=== PATIENT | male | born 1975 | race Caucasian/White ===

== ENCOUNTER 2022-12-16 08:15 | Outpatient (CLI) | payer OTHER, SELFPAY | END 2022-12-16 08:16 | disposition home or self-care (01) | PROVIDERS: PCP Family Medicine; Visit Provider Family Medicine | DX: Z00.00 Encounter for general adult medical examination without abnormal findings (principal); Z13.6 Encounter for screening for cardiovascular disorders | CPT/HCPCS: 80053; 80061; 84270; 84402; 84403 ==

== ENCOUNTER 2023-03-23 12:45 | Outpatient (CLI) | payer OTHER, SELFPAY | END 2023-03-23 12:46 | disposition home or self-care (01) | LOC: LKVREF 12:48 | PROVIDERS: PCP Family Medicine; Visit Provider Registered Nurse | DX: L30.9 Dermatitis, unspecified (principal); W57.XXXA Bitten or stung by nonvenomous insect and other nonvenomous arthropods, initial encounter | CPT/HCPCS: 86618 ==

== ENCOUNTER 2023-08-03 08:42 | Outpatient (CLI) | payer OTHER, SELFPAY ==
--- NOTE | 2023-08-03 09:15 | CRLHL7_ITS ---
For Patients: As a result of the Century Cures Act, medical imaging exams and procedure reports are released immediately into your electronic medical record. You may view this report before your referring provider. If you have questions, please contact your health care provider. INDICATION: Lumbago with sciatica. TECHNIQUE: Multiplanar multisequence noncontrast MR images acquired through the lumbar spine. COMPARISON: None. FINDINGS: Slight rightward lumbar curvature. The lumbar lordosis is preserved. Vertebral heights maintained. No acute fracture or spondylolisthesis. No T1 hypointense marrow replacing lesions. Normal conus terminates at T12-L1. T12-L1 through L2-3: No spinal canal or neural foraminal narrowing. L3-4: Annular bulge. Mild facet arthropathy. No spinal canal narrowing. Mild narrowing of the lateral recesses. No neural foraminal narrowing. L4-5: Postsurgical changes of left hemilaminotomy. T1 hypointense signal in the left lateral recess adjacent to traversing left L5 nerve roots, likely representing granulation tissue. Advanced disc degeneration and disc height loss. Minimal endplate edema as well as more pronounced type 2 degenerate signal changes. Posterior bulging and endplate spondylitic ridging. Mild facet arthropathy. Mild spinal canal narrowing. Moderate right and low-grade left lateral recess narrowing. Mild bilateral neural foraminal narrowing. L5-S1: Postsurgical changes of left hemilaminotomy. T1 hypointense signal in the left lateral recess adjacent to traversing left S1 nerve roots likely represents granulation tissue. Moderate disc degeneration. Disc height loss. Left eccentric disc bulging and endplate spondylitic ridging contact traversing left S1 nerve roots. Mild facet arthropathy. Minimal spinal canal narrowing. Minimal bilateral neural foraminal narrowing. Sacroiliac joint degenerative changes. Very small T2 hyperintense lesion in the left kidney interpolar region, most typical for a renal cyst. IMPRESSION: 1. Multilevel lumbar spondylosis without spinal canal stenosis. 2. At L4-5, postsurgical changes of left hemilaminotomy. T1 hypointense signal in the left lateral recess adjacent to traversing left L5 nerve roots likely represents granulation tissue. Moderate right and low-grade left lateral recess narrowing. 3. At L5-S1, postsurgical changes of left hemilaminotomy. T1 hypointense signal in the left lateral recess adjacent to traversing left S1 nerve roots likely represents granulation tissue. Left eccentric disc bulging and endplate spondylitic ridging contact traversing left S1 nerve roots. Dictated by Mp Dias MD @ 08/03/2023 12:31:24 PM (Electronically Signed)
== END 2023-08-03 08:43 | disposition home or self-care (01) ==
LOC: MRI 08:43
PROVIDERS: PCP Family Medicine; Visit Provider Family Medicine
DX: M54.40 Lumbago with sciatica, unspecified side (principal); M47.896 Other spondylosis, lumbar region
CPT/HCPCS: 72148

== ENCOUNTER 2023-09-30 12:47 | Outpatient (CLI) | payer OTHER, SELFPAY | END 2023-09-30 12:48 | disposition home or self-care (01) | LOC: FRMREF 12:48 | PROVIDERS: PCP Family Medicine; Visit Provider Family Medicine | DX: Z01.818 Encounter for other preprocedural examination (principal) | CPT/HCPCS: 80053 ==

== ENCOUNTER 2024-08-25 08:16 | Outpatient (CLI) | payer OTHER, SELFPAY ==
--- OUTSIDE RECORDS SUMMARY | 2024-08-26 20:16 | XMS_ITS | Data Portability ---
Author Organization [place] [facility] [place] [facility] Address [address] [facility] [address] [place] [address] Assessment Encounter Date Assessment Date Assessment LastModified by Organization Details LastModified Time 12/19/2020 12/19/2020 Patient here for catheter removal . [email or web address] Not available 12/19/2020 12:54:21 10/28/2023 10/28/2023 47M with history of urethral strictures s/p multiple dilations, here with weak stream. 1. Weak stream with h/o urethral stricture - had high grade stricture dilated [address] Sapp - given symptoms and history, concern for stricture recurrence - PVR today 47 cc so no concern for retention at present - recommend f/u in next ~[address] Sapp for cystoscopy: patient is not sure he wants to do this without sedation; will defer to Dr. Sapp on completing cysto in OR - pending cysto findings, may need to consider Optilume vs urethroplasty (he states today he is not interested in urethroplasty) Not available 10/28/2023 17:14:01 Plan of Treatment Reminders Order Date Submit Date Provider Last Modified By Organization Details Last Modified Time Details Appointments None recorded. Lab urinalysis, dipstick 2020 021 [email or web address] Not available 10:01:25 urinalysis, dipstick 2023 024 [email or web address] [facility], [address], [place], [address], 15:55:51 urinalysis, dipstick 2023 024 [email or web address] _[facility], [address], [address], [place], [address], 4 15:47:02 Referral None recorded. Procedures None recorded. Surgeries cystourethr oscopy with direct vision internal urethrotomy (SURG) 2020 021 [email or web address] Not available 16:56:02 Imaging None recorded. Medication Orders doxycycline hyclate 100 mg capsule [address] [facility], [address] [place], [address], 4 15:53:38 meloxicam 15 mg tablet [address] [facility], [address] [place], [address], 4 15:53:52 Patient TargetsNo targets recorded. Patient Instructions Encounter Date Encounter Id Patient Instructions Last Modified By Organization Details Last Modified Time 12/19/2020 [id number] Patient to retur n to clinic or ER if unable to void [email or web address] Not available 12/19/2020 12:55:01 Reason for Referral None Reported. Results Created Date Observation Date Name Description Value Unit Range Abnormal Flag Note LastModifiedBy Organization Detail LastModifiedTime 11/07/2020 urina lysis , dipst ick pH-Status 6.0 Not Available [facility] [address], [place], [address], 11/07/2020 09:56:11 11/07/2020 urina lysis , dipst ick Blood-Status Negati ve Not Available [facility] [address], [place], [address], 11/07/2020 09:56:11 10/28/19 24 10/28/2023 urina lysis , dipst ick Color-Status Yellow Not Available [facility] [address], [place], [address], 10/28/2023 15:55:21 10/28/19 24 10/28/2023 urina lysis , dipst ick Clarity-Stat us Clear Not Available [facility] [address], [place], [address], 10/28/2023 15:55:21 10/28/19 24 10/28/2023 urina lysis , dipst ick pH-Status 7.0 Not Available [facility] [address], [place], [address], 10/28/2023 15:55:21 11/03/19 24 11/03/2023 urina lysis , dipst ick Color-Status Yellow Not Available [facility] [address], [place], [address], 11/03/2023 10:25:59 11/03/19 24 11/03/2023 urina lysis , dipst ick Clarity-Stat us Clear Not Available _[address], [place], [address], 11/03/2023 10:25:59 11/03/19 24 11/03/2023 urina lysis , dipst ick Glucose-Stat us Negati ve Not Available [address], [place], [address], 11/03/2023 10:25:59 11/03/19 24 11/03/2023 urina lysis , dipst ick Sp [place]-Stat us 1.020 Not Available [address], [place], [address], 11/03/2023 10:25:59 11/03/19 24 11/03/2023 urina lysis , dipst ick Nitrates-Sta tus negati ve Not Available [facility] [address], [place], [address], 11/03/2023 10:25:59 11/03/19 24 11/03/2023 urina lysis , dipst ick Blood-Status Negati ve Not Available [facility] [address], [place], [address], 11/03/2023 10:25:59 11/03/19 24 11/03/2023 urina lysis , dipst ick Leuko-Status Negati ve Not Available [place] [address], [place], [address], 11/03/2023 10:25:59 11/07/19 21 11/07/2020 bladd er scan (PROC ) No observ ation record ed. BARCODE Not Available 2020 20:13:13 11/08/19 21 11/07/2020 bladd er scan (PROC ) No observ ation record ed. BARCODE Not Available 2020 08:56:36 Result Notes None recorded. Problems Name Problem SNOMED Code Status Onset Date Resolution Date Notes Provider Name and Address Organization Details Recorded Time Slowing of urinary stream 99209809 Completed 202311/03/2023 Annabel valadez [facility] 4 09:02:51 Urethral stricture 90575688 Active 2023 Mp Sapp MD [address] [place] [address],[address], [address], [facility] 4 16:20:34 Poor stream of urine 138315737 Active 2023 Mp Sapp MD [address] [place] [address],[address], [place], [address], [facility] 4 16:22:10 Problem Notes None recorded. Procedures Surgical History Date Name Laterality Status Provider Name and Address Organization Details Recorded Time 4 Bladder Scan completed Annabel Hughes [facility] 11/03/2023 15:46:32 4 Bladder Scan completed Zita Cramer [facility] 10/28/2023 15:55:17 1 Fill and Pull/Voiding Trial/TOV completed Mayo Panchal [facility] 12/19/2020 12:53:04 1 Cystoscopy- male completed Mp Sapp MD [address], [place], [address], [facility] 11/07/2020 10:27:17 1 Bladder Scan completed Vania Soni [facility] 11/07/2020 10:00:56 9 Colonoscopy completed Annabel Hughes [facility] 11/03/2023 15:45:16 procedure on back completed Zita Cramer [facility] 10/28/2023 15:55:03 Imaging Results Imaging Date Name Status LastModified by Organiz ation Details LastModified Time 11/07/2020 bladder scan (PROC) completed [facility] Information not available 11/07/2020 20:13:13 11/07/2020 bladder scan (PROC) completed [facility] Information not available 11/08/2020 08:56:36 Procedure Notes None recorded. Medical Equipment None Reported. Allergies Allergen ID Allergen Name Allergen Category Reaction Reaction Severity Criticality Documentation Date Start Date Code Code System Note Provider Name and Address Organization Details Recorded Time 715249 No known allergy (situatio n) Not available Not available Not available Not available 11/03/2023 45389 6003 SNOMED Annabel valadez [facility] 4 09:02:57 Medications Name Sig Start Date Stop Date Status Note LastModified by Organization Details LastModified Time cyclobenzap rine 10 mg tablet TAKE 1 TABLET BY MOUTH THREE TIMES DAILY NEEDED FOR MUSCLE SPASM 10/28 completed Not Available Not Available Not Available doxycycline hyclate 100 mg capsule Take 1 capsule twice a day by oral route. 10/28 completed Not Available Not Available Not Available trazodone 50 mg tablet TAKE 1 TO 3 TABLETS BY MOUTH DAILY active Not Available Not Available No t Available sildenafil 50 mg tablet TAKE 1 TABLET BY MOUTH NEEDED 1 HOUR PRIOR TO INTERCOUR SE, TAKE DIRECTED FOR SEXUAL ACTIVITY active Not Available Not Available No t Available hydrocodone 5 mg-acetamin ophen 325 mg tablet TAKE 1 TO 2 TABLETS BY MOUTH EVERY 6 HOURS NEEDED FOR PAIN 10/28 completed Not Available Not Available Not Available meloxicam 15 mg tablet Take 1 tablet every day by oral route with meals. 10/28 completed Not Available Not Available Not Available sennosides 8.6 mg-docusate sodium 50 mg tablet 0 {tbl}s by oral route. 12/12 completed Not Available Not Available Not Available ciprofloxac in 500 mg tablet 500 mg by oral route. 10/28 completed Not Available Not Available Not Available sulfamethox azole 800 mg-trimetho prim 160 mg tablet TAKE 1 TABLET BY MOUTH TWICE DAILY 10/28 completed Not Available Not Available Not Available oxycodone-a cetaminophe n 5 mg-325 mg tablet TAKE 1 TABLET BY MOUTH EVERY 12 HOURS NEEDED FOR MODERATE TO SEVERE PAIN active Not Available Not Available No t Available methocarbam ol 750 mg tablet 750 mg by oral route. 12/12 completed Not Available Not Available Not Available tamsulosin 0.4 mg capsule TAKE 1 CAPSULE BY MOUTH ONCE DAILY 10/28 completed Not Available Not Available Not Available phenazopyri dine 100 mg tablet TAKE 1 TABLET BY MOUTH EVERY 8 HOURS NEEDED 10/28 completed Not Available Not Available Not Available polymyxin B sulfate 10,000 unit-trimet hoprim 1 mg/mL eye drops APPLY 2 DROPS INTO AFFECTED EYE THREE TIMES DAILY. 10/28 completed Not Available Not Available Not Available triamcinolo ne acetonide 0.025 % topical ointment APPLY TOPICALLY TWICE DAILY FOR 7 DAYS. 10/28 completed Not Available Not Available Not Available gabapentin 300 mg capsule TAKE 1 CAPSULE BY MOUTH EVERY DAY AT BEDTIME active Not Available Not Available No t Available mupirocin 2 % topical ointment APPLY TOPICALLY TWICE DAILY FOR 7 DAYS. 10/28 completed Not Available Not Available Not Available methylpredn isolone 4 mg tablets in a dose pack TAKE BY MOUTH DIRECTED ON INSIDE OF PACKAGE 10/28 completed Not Available Not Available Not Available oxycodone 5 mg tablet TAKE 1 TABLET BY MOUTH EVERY 6 HOURS NEEDED FOR PAIN 10/28 completed Not Available Not Available Not Available olopatadine 0.2 % eye drops APPLY 1 DROP BOTH EYES DAILY NEEDED. 10/28 completed Not Available Not Available Not Available Vitals Date Recorded Body height Body mass index (BMI) Body weight Provider Name and Address Organization Details Last Updated DateTime 10/28/2023 182.88 cm 28.5 kg/m2 81714.4 g Zita Cramer [facility] 10/28/2023 15:53:17 Date Recorded Body height Body mass index (BMI) Body weight Provider Name and Address Organization Details Last Updated DateTime 11/03/2023 182.88 cm 28.5 kg/m2 42323.4 g Annabel Hughes [facility] 11/03/2023 15:44:41 Date Recorded Body height Body mass index (BMI) Body weight Provider Name and Address Organization Details Last Updated DateTime 11/07/2020 182.88 cm 30.5 kg/m2 386102.28 g Vania Soni [facility] 11/07/2020 09:55:06 Social History Question Answer Notes LastModified by Organizat ion Details LastModified Time Tobacco Smoking Status Never Smoker Vania valadez [facility] 11/07/2020 09:55:35 What Is Your Level Of Alcohol Consumption? None [email or web address] Information not available 10/28/2023 What Is Your Level Of Caffeine Consumption? Occasional [email or web address] Information not available 11/03/2023 What Was The Date Of Your Most Recent Tobacco Screening? 11/03/2023 [email or web address] Information not available 11/03/2023 Do You Use Any Illicit Or Recreational Drugs? No [email or web address] Information not available 11/03/2023 Has Tobacco Cessation Counseling Been Provided? No [email or web address] Information not available 11/03/2023 Sex: Unknown Functional Status None recorded. Mental Status None recorded. Family History Relationship Description Onset Age of this Age Resolved Age Notes LastModified by Organization Details LastModified Time Father No current problems or disability [email or web address] Not available 11/07 10:00:44 Mother No current problems or disability [email or web address] Not available 11/07 10:00:44 Medical History Condition Response Diabetes N Sexually Transmitted Infection N Other N Bleeding Disorder N High Blood Pressure N Kidney Stones N Cancer N Lung Disease N Depression N High Cholesterol N GERD/Acid Reflux N Heart Disease N Immunizations Vaccine Type Date Status Provider Name and Address Organization Details Recorded Time DT (pediatric) 06/10/1992 completed Annabel February rory, [facility] 11/03/2023 09:02:28 influenza, unspecified formulation 09/07/2005 completed Annabel February rory, [facility] 11/03/2023 09:02:28 Tdap 10/07/2018 completed Annabel February rory, [facility] 11/03/2023 09:02:28 Td (adult), 2 Lf tetanus toxoid, preservative free, adsorbed 07/18/2000 completed Annabel February rory, [facility] 11/03/2023 09:02:28 Past Encounters Encounter ID Performer Location Encounter Start Date Encounter Closed Date Diagnosis/Indication Diagnosis SNOMED-CT Code Diagnosis ICD10 Code [id number] Mp Sapp MD [facility] [address] [place] [address] 11/07/2020 09:50:14 11/07/2020 13:39:18 Urinary tract infectious disease 28261491 N39.0 Prostatitis 5719360 N41. 9 Urethral stricture 88931 002 N35.814 [id number] Mp Sapp MD _[facility] [address] [place] [address] 12/19/2020 12:26:39 12/23/2020 08:51:14 [id number] Sharon Garcia PA-C _[place] [address] [place] [address] 10/28/2023 15:31:33 11/11/2023 17:36:59 History of urethral stricture 304720788 Z87.448 Slowing of urinary stream 81402805 R39.12 [id number] Mp Sapp MD [facility] [place] [address] 11/03/2023 15:36:43 11/12/2023 11:29:24 Poor stream of urine 007792712 R39.12 Urethral stricture 46625 002 N35.814 Health Concerns Section Related Observation LastModified by Organization Detai ls LastModified Time None Recorded Concern Status LastModified by Organization Details LastModified Time None Recorded Advance Directives Directive None Recorded Payers Encounter Date Sequence Insurance Name Policy Number Policy Mo Covered Member ID Mo Member ID Guarantor Name 12/19/2020 1 [facility] Maynor Pascual Mauricio [id number] Maynor Martínez 10/28/2023 [facility] Mart[facility]nez [id number] Maynor Martínez 11/03/2023 [facility] May[facility] Dale Mauricio [id number] Maynor Martínez Notes Date Note Type Note Provider Name and Address Organization Details Recorded Time 11/07/2020 text/html HPI Notes: New patient referred for about a 1-1/2-month history of new onset suprapubic pain, burning pain at the tip of the penis, weak stream, increased urgency, small voided volumes. Symptoms are intermittent. He denies any testicular or perineal pain. Past history is significant for urethral stricture disease and he had several dilations in the office in his early 20s over the course of about [address] Willie Pulido. I reviewed the referring doctor clinic notes from [facility] (Dr. Oseas Ro) dated 09/18/2020. I reviewed the labs as well from [place] on 09/18/2020 and he had a normal urinalysis at that time and urine culture was negative. He treated him with a 7-day course of Bactrim and also started him on tamsulosin and the patient states that this did not help his symptoms. Mp Sapp MD [address], [place], [address], [facility] 11/07/2020 11:41:59 10/28/2023 text/html HPI Notes: New patient referred for about a 1-1/2-month history of new onset suprapubic pain, burning pain at the tip of the penis, weak stream, increased urgency, small voided volumes. Symptoms are intermittent. He denies any testicular or perineal pain. Past history is significant for urethral stricture disease and he had several dilations in the office in his early 20s over the course of about [address] Willie Pulido. I reviewed the referring doctor clinic notes from [facility] (Dr. Oseas Ro) dated 09/18/2020. I reviewed the labs as well from [place] on 09/18/2020 and he had a normal urinalysis at that time and urine culture was negative. He treated him with a 7-day course of Bactrim and also started him on tamsulosin and the patient states that this did not help his symptoms. 10/28/23: Pt of Dr. Sapp here for weak urinary stream. History of urethral stricture as above. Last had dilation of urethral stricture in the OR on 12/16/[address] Sapp when he was noted to have a high-grade appearing 8Fr proximal urethral stricture. This was dilated to 22Fr. 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 Dr. Sapp had recommended close follow up and potential future need for urethroplasty. Patient has been lost to urologic follow up since early 2020. Now here with weak urinary stream and some dysuria. Feels he empties bladder completely, but stream is slow and weak. Denies gross hematuria, fever, or chills. UA today negative PVR today 47 cc Sharon Garcia PA-C [address] [place] [address],[facility] [address], [place], [address], [facility] 10/28/2023 17:14:11 11/03/2023 text/html HPI Notes: New patient referred for about a 1-1/2-month history of new onset suprapubic pain, burning pain at the tip of the penis, weak stream, increased urgency, small voided volumes. Symptoms are intermittent. He denies any testicular or perineal pain. Past history is significant for urethral stricture disease and he had several dilations in the office in his early 20s over the course of about [address] Willie Pulido. I reviewed the referring doctor clinic notes from [facility] (Dr. Oseas Ro) dated 09/18/2020. I reviewed the labs as well from [place] on 09/18/2020 and he had a normal urinalysis at that time and urine culture was negative. He treated him with a 7-day course of Bactrim and also started him on tamsulosin and the patient states that this did not help his symptoms. 10/28/23 (with FRANSISCO Ta): Pt of Dr. Sapp here for weak urinary stream. History of urethral stricture as above. Last had dilation of urethral stricture in the OR on 12/16/[address] Sapp when he was noted to have a high-grade appearing 8Fr proximal urethral stricture. This was dilated to 22Fr. 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 Dr. Sapp had recommended close follow up and potential future need for urethroplasty. Patient has been lost to urologic follow up since early 2020. Now here with weak urinary stream and some dysuria. Feels he empties bladder completely, but stream is slow and weak. Denies gross hematuria, fever, or chills. UA today negative PVR today 47 cc 11/03/23: He underwent L4-L5 microdiscectomy at [facility] on 10/07/2023. He reports that they placed a temporary Acharya catheter at the time of his surgery and did not require urology assistance. I reviewed the notes and [facility] care everywhere and confirmed that there was no report of difficult catheter or requiring urology consultation. He reported more difficulty with weak stream especially in the morning, but this is improving. He has been able to wean off of his pain medications and this is helping. Postvoid residual today 0 mL. Urine analysis normal today. Mp Sapp MD [address], [place], [address], [facility] 11/03/2023 16:22:26
--- OUTSIDE RECORDS SUMMARY | 2024-08-26 20:16 | XMS_ITS | Clinical Summary ---
Author Organization [facility] Address [address] [place] [address]. [place] [address] Care Team Providers Care House Wirer Helper Name Role Phone Clinic, [facility] Primary Care Provider Allergies No known active allergies Medications triamcinolone (KENALOG) 0.1 % external creamIndication s:Contact dermatitis due to poison del Apply topically 2 times daily 45 g 1 Active predniSONE (DELTASONE) 20 MG tabletIndicatio ns:Contact dermatitis due to poison del Take 3 tabs by mouth daily x 3 days, then 2 tabs daily x 3 days, then 1 tab daily x 3 days, then 1/2 tab daily x 3 days. 20 tablet 1 Active Active Problems No known active problems Immunizations Name Administration Dates Next Due TD,PF 7+ (Tenivac) 10/18/2004 Family History Medical History Relation Comments Diabetes Brother type 2 diabetes 20's Hypertension No family hx of Relation Status Comments Brother Social History Tobacco Use Types Packs/Day Years Used Date Smoking Tobacco: Never Smokeless Tobacco: Never Alcohol Use Standard Drinks/Week Comments Yes 10 (1 standard drink = 0.6 oz pu re alcohol) beer 1-2 times a month Adolescent Education Answer Date Record ed Getting School Help Needed Not on file 07/25 Sex and Gender Information Value Date Recorded Sex Assigned at Not on file Legal Sex Male 3:14 AM [employer] Gender Identity Not on file Sexual Orientation Not on file Occupation Industry Job Start Date Job End Date Not on file Not on file Not on file Not on file Last Filed Vital Signs Vital Sign Reading Time Taken Comments Blood Pressure 137/87 07/01/2021 6:28 PM CDT Pulse 70 07/01/2021 6:28 PM CDT Temperature 37.1 ??C (98.7 ??F) 07/01/2021 6:28 PM CD T Respiratory Rate 18 07/01/2021 6:28 PM CDT Oxygen Saturation 100% 07/01/2021 6:28 PM CDT Inhaled Oxygen Concentration - - Weight 97.5 kg (215 lb) 03/25/2019 12:46 PM CDT Height 188 cm (6' 2) 03/25/2019 12:46 PM CDT Body Mass Index 27.6 03/25/2019 12:46 PM CDT Plan of Treatment Not on file Insurance [employer] Care Teams House Wirer Helper Relationship Specialty Start Date End Date Clinic, [facility] [address] [place] [address] PCP - General 03/25/19
--- OUTSIDE RECORDS SUMMARY | 2024-08-26 20:16 | XMS_ITS | Clinical Summary ---
Author Organization 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 15 tablet 12/16/2020 Active methylPREDNISolone (MEDROL DOSEPAK) 4 mg tabletIndications: Right-sided low back pain with right-sided sciatica, unspecified chronicity Take by mouth as instructed per packaging. 21 Tablet 10/15/2023 Active oxyCODONE-acetamin ophen (Percocet) 5-325 mg per tabletIndications: Right-sided low back pain with right-sided sciatica, unspecified chronicity Take 1-2 Tablets by mouth every 4 hours if needed for Pain. Max acetaminophen dose: 4000mg in 24 hrs. 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 Pulse 70 10/15/2023 5:32 PM [employer] TOE [employer] Temperature 36.2 ??C (97.1 ??F) 10/15/2023 2:07 PM CS T Respiratory Rate 16 10/15/2023 5:32 PM BOX TOE STITCHER Oxygen Saturation 95% 10/15/2023 5:32 PM BOX TOE [employer]ITCHER Inhaled Oxygen Concentration - - Weight 95.3 kg (210 lb) 10/15/2023 2:07 PM BOX TOE [employer]ITCHER Height 188 cm (6' 2) 10/15/2023 2:07 PM [employer]E [employer]ER Body Mass Index 26.96 10/15/2023 2:07 PM [employer]E [employer]ER Plan of Treatment Health Maintenance Due Date Last Done Comments Tdap 1987 Depression screening for age 12+ 1988 HIV for age 15-65 1991 BMI (ht and wt on same day) for age 18+ 1994 Hepatitis C screening for ag e 18-79 1994 Tetanus booster 1996 Colonoscopy through age 75 2021 Lipids for age 45-75 2021 COVID-19 vaccine series (2023- season) 2024 Influenza for age 9-49 06/18/2024 Pneumococcal series for age 6-64 Aged Out No longer eligible based on patient's age to complete this topic Medical Devices Implanted Type 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 Device Identifier Shelf Expiration Date Model / Serial / Lot Dura Durepair [id number] - [id number] Implanted:Qty: 1 on 12/20/2006 at [facility] [employer] [id number]# / / [id number] Advance Directives * Full Code (Latest Code Status on File) Date Activated Date Inactivated Comments 12/16/2020 1:53 PM 12/16/2020 8:04 PM Question Answer Comments Code Status Discussion: Not Discussed * Full Code Date Activated Date Inactivated Comments 12/18/2013 7:44 PM 12/19/2013 4:12 PM * Full Code Date Activated Date Inactivated Comments 12/18/2013 2:01 PM 12/18/2013 7:44 PM * Full Code Date Activated Date Inactivated Comments 12/20/2006 5:10 PM 12/22/2006 1:15 PM * Full Code Date Activated Date Inactivated Comments 12/20/2006 10:44 AM 12/20/2006 5:10 PM Care Teams Splash Line Operator Relationship Specialty Start Date End Date Pcp, No . PCP - General 10/15/23
--- OUTSIDE RECORDS SUMMARY | 2024-08-26 20:16 | XMS_ITS | Referral Summary ---
Author Organization [facility] Address [address] [place] [address]. 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
== END 2024-08-25 08:17 | disposition home or self-care (01) ==
LOC: NFLDREF 08-26 20:14
PROVIDERS: Visit Provider Physician Assistant Medical
DX: Z00.00 Encounter for general adult medical examination without abnormal findings (principal); G47.00 Insomnia, unspecified; F41.9 Anxiety disorder, unspecified; Z13.6 Encounter for screening for cardiovascular disorders; Z13.29 Encounter for screening for other suspected endocrine disorder
CPT/HCPCS: 80053; 80061; 84443

== ENCOUNTER 2025-08-23 08:13 | Outpatient (CLI) | payer OTHER, SELFPAY | END 2025-08-23 08:14 | disposition home or self-care (01) | PROVIDERS: PCP Physician Assistant Medical; Referring Provider Physician Assistant Medical; Visit Provider Physician Assistant Medical | DX: Z00.00 Encounter for general adult medical examination without abnormal findings (principal); N52.9 Male erectile dysfunction, unspecified; G47.00 Insomnia, unspecified; Z12.5 Encounter for screening for malignant neoplasm of prostate; Z13.6 Encounter for screening for cardiovascular disorders; Z13.9 Encounter for screening, unspecified | CPT/HCPCS: 80053; 80061; 84443; G0103 ==

== ENCOUNTER 2025-08-28 09:59 | Outpatient (CLI) | payer OTHER, SELFPAY ==
--- NOTE | 2025-08-28 10:15 | CRLHL7_ITS ---
For Patients: As a result of the Century Cures Act, medical imaging exams and procedure reports are released immediately into your electronic medical record. You may view this report before your referring provider. If you have questions, please contact your health care provider. INDICATION: Other disorders of bilirubin metabolism COMPARISON: none TECHNIQUE: Real time villalpando scale imaging and color Doppler analysis was performed of the right upper quadrant. FINDINGS: The patient`s liver is of normal size and has uniform echogenicity. There is a normal appearance of the hepatic IVC and proximal abdominal aorta. There is no evidence of ascites. The gallbladder is of normal size and there is no evidence of intraluminal stones or sludge. The gallbladder wall measures 3 mm in thickness. The common bile duct is of normal size and measures 4 mm in diameter at the level of the herlinda hepatis. The pancreas appears normal. There is no evidence of a stone or hydronephrosis within the right kidney. The right kidney measures 13.7 cm in length. IMPRESSION: Normal right upper quadrant ultrasound. Dictated by Roby Bone MD @ 08/28/2025 12:24:30 PM (Electronically Signed)
== END 2025-08-28 10:00 | disposition home or self-care (01) ==
PROVIDERS: PCP Physician Assistant Medical; Visit Provider Physician Assistant Medical
DX: E80.6 Other disorders of bilirubin metabolism (principal)
CPT/HCPCS: 76705

== ENCOUNTER 2025-10-03 09:28 | Outpatient (CLI) | payer OTHER, SELFPAY ==
[2025-10-03 10:54] LABS: PCR FLU A POSITIVE PCR FLU A (Negative); PCR FLU B Negative PCR FLU B (Negative); SARS PCR* Negative SARS-CoV-2 (Negative)
== END 2025-10-03 09:29 | disposition home or self-care (01) ==
LOC: FRMREF 09:28
PROVIDERS: PCP Physician Assistant Medical; Visit Provider Physician Assistant Medical
DX: R50.9 Fever, unspecified (principal)
CPT/HCPCS: 87636